=== PATIENT | male | born 2005 | race African-American/Black ===

== ENCOUNTER 2023-07-18 07:00 | Emergency (ER) | payer OTHER, SELFPAY ==
[2023-07-18] VITALS (10 sets, daily range): BP systolic 126–146; BP diastolic 59–94; PULSE 63–114; RESP 16–19; TEMP 36.6–36.7; O2SAT 100
--- NOTE | ~2023-07-18 | CT_ITS ---
EXAMINATION: CT abdomen pelvis w con DATE: 07/18/2023 07:59 INDICATION: Epigastric pain left upper quadrant pain with nausea. TECHNIQUE: Computed tomography (CT) of the abdomen and pelvis was performed with 100 cc Omnipaque 350 intravenous contrast. The dose-length product was 253.84 mGy-cm. Automated exposure control and iter ative reconstruction technique were employed. COMPARISON: None. FINDINGS: Lung bases are unremarkable. Heart size normal. No significant pleural or pericardial the l iver, spleen, pancreas, adrenal glands and kidneys are unremarkable. Gallbladder is present. No abnor mal pelvic masses or fluid collections. Nonobstructive bowel gas pattern. No significant vascular abn ormality. Gallbladder is present. No lymphadenopathy. IMPRESSION: 1. No acute abdominal abnormality. Reviewed, dictated and finalized at location B.
[2023-07-18] MEDS: FAMOTIDINE 20 MG/2 ML VIAL IV PUSH (07:25)
[2023-07-18] MEDS: KETOROLAC 30 MG/ML VIAL (*BKC) IV PUSH (07:25)
[2023-07-18] MEDS: SODIUM CHLORIDE 0.9% IV 1,000 ML 150 ML IV CONT (07:25)
[2023-07-18 07:33] LABS: Basophils Percent Auto 0.5 % (0.2-1.2); Eosinophils Absolute Auto 0.1 K/mm3 (0-0.3); Eosinophils Percent Auto 1.1 % (0-4.4); Hematocrit 45.2 % (42.0-52.0); Hemoglobin 15.8 g/dL (14.0-18.0); Immature Granulocyte Absolute 0.01 K/mm3 (0.00-0.031); Immature Granulocyte Percent A 0.2 % (0-0.5); Lymphocytes Absolute Auto 1.42 K/mm3 (0.9-3.2); Mean Corpuscular Volume 88.6 fl (80-100); Mean Platelet Volume 11.4 fl (7.4-10.4); Monocytes Absolute Auto 0.4 K/mm3 (0.1-0.6); Monocytes Percent Auto 7.2 % (2.6-8.5); Neutrophils Absolute Auto 3.8 K/mm3 (1.3-6.7); Platelet Count Result 179 k/mm3 (150-375); Red Cell Distribution Width 12.9 % (11.5-14.5); White Blood Count 5.7 K/mm3 (4.5-10.0)
[2023-07-18 07:35] LABS: Appearance Urine Clear (Clear); Bilirubin Urine Negative (Negative); Blood Urine Negative (Negative); Color Urine Yellow (Yellow); Glucose Urine UA Negative (Negative); Ketones Urine Negative (Negative); Leukocyte Esterase Ur Negative LEU/UL (Negative); Nitrate Urine Negative (Negative); Protein Urine Negative (Negative); Specific Grav Ur 1.014 (1.001-1.035)
[2023-07-18 07:44] LABS: Alanine Aminotransferase 20 U/L (6-50); Albumin Level 4.6 g/dL (3.7-5.6); Alkaline Phosphatase 94 U/L (58-237); Anion Gap 3 mmol/L (4-12); Aspartate Amino Transferase 28 U/L (17-59); Bilirubin,Total 1.7 mg/dL (0.2-1.3); Blood Urea Nitrogen 7 mg/dL (8-21); Calcium 9.8 mg/dL (8.9-10.7); Carbon Dioxide 27 mmol/L (22-30); Chloride 106 mmol/L (98-107); Estimated CRCL calculation 119 ml/min; Estimated Glomerular Filt Rate > 60; Glucose 99 mg/dL (65-110); Lipase 32 U/L (23-300); Potassium 4.3 mmol/L (3.4-5.0); Sodium 136 mmol/L (134-143)
[2023-07-18 07:54] LABS: Add Urine Microscopic? NO
--- NOTE | 2023-07-18 08:39 | ED.ABDPAIN ---
HPI - Abdominal Pain General Chief Complaint: Abdominal Pain Stated Complaint: stomach pains Time Seen by Provider: 07/18/23 07:07 Source: patient Mode of arrival: ambulatory Limitations: no limitations History of Present Illness HPI narrative: 17-year-old otherwise healthy here with complaints of upper abdominal pain for past 1 day. He denies any nausea, vomiting or diarrhea. No history of fever or chills. Denies alcohol use. MD elicited complaint: abdominal pain Pertinent past history: none Onset (ago): day(s) (1) Pain Consistency: constant Location: epigastric and LUQ Quality: aching Radiation: LUQ Migration to: no migration Exacerbating factors: nothing Relieving factors: nothing Associated symptoms: denies other symptoms Related Data Allergies Allergy/AdvReac Type Severity Reaction Status Date / Time No Known Allergies Allergy Verified 07/18/23 07:14 Review of Systems Review of Systems: All systems reviewed & are unremarkable except as noted in HPI and below Constitutional: Constitutional: Reports no additional constitutional complaints Eyes: Eyes: Reports no additional eye complaints ENT: Reports system reviewed and no additional complaints, except as documented Cardiovascular: Cardiovascular: Reports no additional cardiovascular complaints Respiratory: Respiratory: Reports no additional respiratory complaints Gastrointestinal: Gastrointestinal: Reports as per HPI Musculoskeletal: Musculoskeletal: Reports no additional musculoskeletal complaints Integumentary/Breasts: Skin/Breast: Reports system reviewed and no additional complaints, except as docu Exam Narrative: GENERAL: Well-appearing, well-nourished, and in no acute distress. HEAD: Normocephalic, atraumatic. EYES: PERRLA and EOMI. ENT: Nares clear, no rhinorrhea or epistaxis. Mucous membranes moist. NECK: Supple. CHEST: Clear to auscultation. No respiratory distress. HEART: Regular rate and rhythm. No murmur heard. Normal peripheral pulses. ABDOMEN: Soft, mild epigastric tenderness , nondistended, normal active bowel sounds. EXTREMITIES: Normal range of motion. No edema. SKIN: Warm, dry, no rash. NEURO: No focal deficits. Alert and oriented x3. PSYCH: Normal mood and affect. Course Course Emergency Course: Patient feeling much better I informed him about his lab work, CT findings. Advised to take medicine as prescribed. Vital Signs Vital signs: Vital Signs Temperature 36.7 C 07/18/23 07:10 Pulse Rate 114 H 07/18/23 07:10 Respiratory Rate 19 07/18/23 07:10 Blood Pressure 139/83 07/18/23 07:10 Pulse Oximetry 100 07/18/23 07:10 Oxygen Delivery Room Air 07/18/23 07:10 Temperature 36.7 C 07/18/23 07:10 Pulse Rate 63 07/18/23 07:32 Respiratory Rate 16 07/18/23 07:32 Blood Pressure 132/82 07/18/23 08:17 Pulse Oximetry 100 07/18/23 08:17 Oxygen Delivery Room Air 07/18/23 07:10 MDM - Abdominal Pain Differential Diagnosis Differential diagnosis: Likely pancreatitis and other (Gastritis) Medical Records Attestation: I reviewed the patient's medical records. Lab Data 07/18/23 07:24 07/18/23 07:24 Labs: Lab Results 07/18/23 Range/Units 07:24 WBC 5.7 (4.5-10.0) K/mm3 RBC 5.10 (4.6-6.20) M/mm3 Hgb 15.8 (14.0-18.0) g/dL Hct 45.2 (42.0-52.0) % MCV 88.6 (80-100) fl MCH 31.0 (26-34) pg MCHC 35.0 (32-36) g/dl RDW 12.9 (11.5-14.5) % Plt Count 179 (150-375) k/mm3 MPV 11.4 H (7.4-10.4) fl Immature Gran % (Auto) 0.2 (0-0.5) % Neut % (Auto) 66.0 (45.5-73.1) % Lymph % (Auto) 25.0 (18.3-44.2) % Gulf % (Auto) 7.2 (2.6-8.5) % Eos % (Auto) 1.1 (0-4.4) % Baso % (Auto) 0.5 (0.2-1.2) % Lymph # (Auto) 1.42 (0.9-3.2) K/mm3 Gulf # (Auto) 0.4 (0.1-0.6) K/mm3 Eos # (Auto) 0.1 (0-0.3) K/mm3 Baso # (Auto) 0.0 (0.0-0.1) K/mm3 Abs Immat Gran (auto) 0.01 (0.00-0.031) K/mm3 Absolute Neuts (auto) 3.8 (1.3-6.7
== END 2023-07-18 08:57 | disposition home or self-care (01) ==
PROVIDERS: Emergency Medicine; Emergency Provider Family Medicine
DX: R10.13 Epigastric pain (principal)
CPT/HCPCS: 36415; 74177; 80053; 81003; 83690; 85025; 96361; 96374; 96375; 99284; J1885; J7030; Q9967